=== PATIENT | female | born 1985 | race Caucasian/White ===

== ENCOUNTER 2016-06-08 00:11 | Emergency (ER) | payer OTHER ==
[~2016-06-08] VITALS: Ht 157.5 cm; Wt 107.9 kg
[~2016-06-08 00:11] MED LIST: ALBUTEROL SULF8.5 GM IH; AMOXICILLIN500 MG PO; CIPRO500 MG PO; INDERAL10 MG PO; LEXAPRO10 MG PO; LYRICA100 MG PO; METROGEL-VAGINA70 GM VG; MOTRIN600 MG PO; MOTRIN800 MG PO; NAPROXEN500 MG PO; PEN-VEE K,VEET500 MG PO; PHENERGAN-CODE120 ML PO; PRAZOSIN HCL1 MG PO; PREDNISONE20 MG PO; PROAIR HFA8.5 GM IH; TAMIFLU75 MG PO; TORADOL10 MG PO; TRAMADOL HCL50 MG PO; TRAZODONE HCL50 MG PO; XANAX0.5 MG PO; ZITHROMAX Z-PA250 MG PO; ZOFRAN8 MG PO
[2016-06-08 01:49] LABS: HEMATOCRIT 38.4 % (36.0-46.0); MCH 30.3 PG (29.0-34.0); MCHC 34.1 G/DL (30.0-36.0); MCV 88.9 FL (83-99); MEAN PLAT.VOLUME 9.7 uM^3 (9.5-12.4); PLATELET COUNT 235 K/uL (156-360); RBC DIS.WIDTH-CV 13.2 % (11.8-14.6); RBC DIS.WIDTH-SD 41.9 % (39-53); RED BLOOD COUNT 4.32 M/uL (3.80-5.20); WHITE BLOOD COUNT 5.2 K/uL (4.1-10.2)
[2016-06-08 02:01] LABS: CHLORIDE 108 mEq/L (99-109); POTASSIUM 3.6 mEq/L (3.7-5.4); SODIUM 138 mEq/L (136-147)
[2016-06-08 02:03] LABS: GLUCOSE 95 mg/dL (70-99)
[2016-06-08 02:05] LABS: ANION GAP 8 MEQ/L (2-14); TOTAL BILIRUBIN 0.3 mg/dL (0.0-1.0)
[2016-06-08 02:07] LABS: ALKALINE PHOSPHATASE 91 IU/L (3-129); GFR ESTIMATE (CALCULATED) > 59 mL/min/
[2016-06-08 02:08] LABS: UREA NITROGEN (BUN) 5 mg/dL (9-23)
[2016-06-08 02:09] LABS: DIRECT BILIRUBIN 0.1 mg/dL (0.0-0.3)
[2016-06-08 02:11] LABS: LIPASE 6 U/L (1.0-51.0)
[2016-06-08 02:14] LABS: INFLUENZA A VIRAL ANTIGEN POSITIVE; INFLUENZA B VIRAL ANTIGEN NEGATIVE
[2016-06-08] MEDS ORDERED: HYCODAN SYRUP480 ML PO (02:21)
[2016-06-08] MEDS ORDERED: TAMIFLU75 MG PO (02:21)
[2016-06-08 02:32] VITALS: BP 138/78
== END 2016-06-08 02:38 | disposition home or self-care (01) ==
LOC: EME 00:11
PROVIDERS: Emergency Medicine
DX: J10.1 Influenza due to other identified influenza virus with other respiratory manifestations (principal); R11.0 Nausea; M79.1 Myalgia; Z87.442 Personal history of urinary calculi; F17.200 Nicotine dependence, unspecified, uncomplicated
CPT/HCPCS: 71020; 80048; 80076; 83690; 85027; 87502; 87651 90; 99281; 99284